=== PATIENT | male | born 1955 | race Caucasian/White ===

== ENCOUNTER 2020-10-30 15:24 | Emergency (ER) | payer MEDICARE, OTHER ==
[2020-10-30 16:50] LABS: BASOPHIL 1.1 % (0-2); EOSINOPHIL 2.2 % (0-7); HCT 47.7 % (42.0-52.0); HGB 15.9 g/dl (13.2-18.0); LYMPHOCYTE 25.2 % (15-48); MCHC 33.3 g/dL (32.0-36.0); MCV 86.9 fL (78.0-100.0); MPV 10.5 fL (6.0-9.5); NEUTROPHIL 65.8 % (41-80); NRBC 0; PLT 306 K/uL (150-400); RBC 5.49 M/uL (4.70-6.00); RDW 13.7 % (11.5-14.0); WBC 5.4 K/uL (4.0-10.5)
[2020-10-30 17:01] LABS: BUN/CREAT RATIO (CALC) 27.7 RATIO; CREATININE 1.12 mg/dL (0.67-1.17); POTASSIUM 4.9 mmol/L (3.5-5.1)
== END 2020-10-30 20:22 | disposition home or self-care (01) ==
LOC: FER 15:24
PROVIDERS: Nurse Practitioner Family
DX: E86.0 Dehydration (principal); E11.65 Type 2 diabetes mellitus with hyperglycemia; I10 Essential (primary) hypertension
CPT/HCPCS: 36415; 80048; 82009; 84484; 85025; 93005; J7030